=== PATIENT | female | born 1960 | race Asian ===

== ENCOUNTER 2019-09-17 01:09 | Emergency (ER) | payer SELFPAY ==
[~2019-09-17] VITALS: Ht 160 cm; Wt 68.5 kg
[2019-09-17 01:18] VITALS: Ht 160 cm; Wt 68.5 kg
[2019-09-17 02:15] LABS: BASOPHIL % 0.3 % (0-2); PLATELET COUNT 212 x10^3mcL (130-400); RED CELL DISTRIBUTION WIDTH 13.4 % (11.5-14.5)
[2019-09-17 02:41] LABS: SODIUM SERUM 141 mmol/L (136-145)
[2019-09-17 02:42] LABS: ALBUMIN 3.8 g/dL (3.4-5.0); BILIRUBIN TOTAL 0.32 mg/dL (0.20-1.00); CALCIUM 8.8 mg/dL (8.5-10.1); CARBON DIOXIDE 28.6 mmol/L (21-32); CHLORIDE SERUM 103 mmol/L (98-107); CREATININE SERUM 0.7 mg/dL (0.6-1.0); GFR1 > 60 mL/min; GLUCOSE SERUM 142 mg/dL (74-106); POTASSIUM SERUM 3.6 mmol/L (3.5-5.1); TOTAL PROTEIN, SERUM 7.1 g/dL (6.4-8.2)
[2019-09-17 02:43] LABS: ALKALINE PHOSPHATASE 57 U/L (46-116); ALT/SGPT 16 U/L (14-59); AST/SGOT 12 U/L (15-37)
[2019-09-17 03:20] VITALS: BP 123/60
== END 2019-09-17 03:21 | disposition home or self-care (01) ==
LOC: ED 01:09
PROVIDERS: Emergency Medicine
DX: R00.2 Palpitations (principal); E11.9 Type 2 diabetes mellitus without complications
CPT/HCPCS: 84439; J7030; Q0092